=== PATIENT | female | born 1950 | race Two or more races ===

== ENCOUNTER 2020-11-07 04:06 | Day surgery (SDC) | payer OTHER, BC ==
[2020-11-07] MEDS ORDERED: LIDOCAINE HCL/PF 1% SDV 5ML VIAL ONE (07:36)
[2020-11-07 10:22] VITALS: BMI 30.7
[2020-11-07] MEDS ORDERED: SODIUM CHLORIDE 0.9% P/F 10 ML VIAL IJ ONE (11:09)
[2020-11-07] MEDS ORDERED: LIDOCAINE 1% P/F 10 MG/ML VIAL INF ONE (11:17)
[2020-11-07] MEDS ORDERED: IOHEXOL 180 MG/1 ML ML IJ ONE (11:19)
[2020-11-07] MEDS ORDERED: DEXAMETHASONE SOD PHOSPHATE 10 MG/1 ML VIAL IM ONE (11:21)
[2020-11-07 12:15] VITALS: BP 135/71; PULSE 77; TEMP 98
== END 2020-11-07 12:00 | disposition home or self-care (01) ==
LOC: JASU-SURG 04:06
PROVIDERS: ATTEND Pain Medicine Pain Medicine
PROC: B01BYZZ Fluoroscopy of Spinal Cord using Other Contrast (ICD-10-PCS; 2020-11-07)
PROC: 3E0R33Z Introduction of Anti-inflammatory into Spinal Canal, Percutaneous Approach (ICD-10-PCS; principal; 2020-11-07 12:00)
DX: M54.12 Radiculopathy, cervical region (principal)
CPT/HCPCS: 76000-TC-FY; J1100